=== PATIENT | female | born 1955 | race Caucasian/White ===

== ENCOUNTER 2017-04-27 22:01 | Emergency (ER) | payer BC ==
[2017-04-28] MEDS ORDERED: ONDANSETRON 4 MG TAB.RAPDIS PO ONE (00:45)
[2017-04-28] MEDS ORDERED: KETOROLAC TROMETHAMINE 60 MG/2 ML SDV IM ONE (00:45)
--- NOTE | 2017-04-28 00:46 | ER Document Report ---
ED GI/ - General Chief Complaint: Abdominal Pain Stated Complaint: SIDE PAIN,NAUSEA,PAINFUL URINATION Time Seen by Provider: 04/28/17 00:31 Notes: The patient is a 61-year-old female, PMHx cholecysectomy, tubal ligation, who presents with 1 day of right lower quadrant abdominal pain, dysuria and right flank pain. She said the pain is worsening in intensity. She also having nausea, but no vomiting. She denies fevers, hematemesis, diarrhea, constipation , vaginal discharge, chest pain or shortness of breath. TRAVEL OUTSIDE OF THE [place] IN LAST 30 DAYS: No - Related Data Allergies/Adverse Reactions: No Known Allergies Allergy (Verified 03/14/16 17:29) Past Medical History - General Information source: Patient - Social History Smoking Status: Unknown if Ever Smoked Family History: Reviewed & Not Pertinent Patient has suicidal ideation: No Patient has homicidal ideation: No Renal/ Medical History: Denies: Hx Peritoneal Dialysis Past Surgical History: Reports: Hx Tubal Ligation - Immunizations Hx Diphtheria, Pertussis, Tetanus Vaccination: - Unknown Review of Systems - Review of Systems Notes: REVIEW OF SYSTEMS: CONSTITUTIONAL: -fevers, -chills EENT: -eye pain, -difficulty swallowing, -nasal congestion CARDIOVASCULAR:-chest pain, -syncope. RESPIRATORY: -cough, -SOB GASTROINTESTINAL: +abdominal pain, +nausea, -vomiting, -diarrhea GENITOURINARY: +dysuria, -hematuria MUSCULOSKELETAL: -back pain, -neck pain SKIN: -rash or skin lesions. HEMATOLOGIC: -easy bruising or bleeding. LYMPHATIC: -swollen, enlarged glands. NEUROLOGICAL: -altered mental status or loss of consciousness, -headache, - neurologic symptoms PSYCHIATRIC: -anxiety, -depression. ALL OTHER SYSTEMS REVIEWED AND NEGATIVE. Physical Exam - Vital signs Vitals: Temp Pulse Resp BP Pulse Ox 98.3 F 83 16 130/64 H 99 04/27/17 22:05 04/27/17 22:05 04/27/17 22:05 04/27/17 22:05 04/27/17 22:05 - Notes Notes: PHYSICAL EXAMINATION: GENERAL: Well-appearing, well-nourished and in no acute distress. HEAD: Atraumatic, normocephalic. EYES: Pupils equal round and reactive to light, extraocular movements intact, sclera anicteric, conjunctiva are normal. ENT: nares patent, oropharynx clear without exudates. Moist mucous membranes. NECK: Normal range of motion, supple without lymphadenopathy LUNGS: Breath sounds clear to auscultation bilaterally and equal. No wheezes rales or rhonchi. HEART: Regular rate and rhythm without murmurs ABDOMEN: Soft, moderate RLQ tenderness, normoactive bowel sounds. No guarding, no rebound. No masses appreciated. EXTREMITIES: Normal range of motion, no pitting or edema. No cyanosis. NEUROLOGICAL: Cranial nerves grossly intact. Normal speech, normal gait. Normal sensory and motor exams. PSYCH: Normal mood, normal affect. SKIN: Warm, Dry, normal turgor, no rashes or lesions noted. Course - Re-evaluation Re-evalutation: Pt appears well. CT A/P shows evidence of mild sigmoid diverticulitis without complications. Will treat as Outpatient with Cipro and Flagyl w/ f/u at her PMD. She has a colonoscopy scheduled later this month. Given strict return precautions and she understands. - Vital Signs Vital signs: Temp Pulse Resp BP Pulse Ox 98.3 F 83 16 130/64 H 99 04/27/17 22:05 04/27/17 22:05 04/27/17 22:05 04/27/17 22:05 04/27/17 22:05 - Laboratory Result Diagrams: 04/28/17 00:38 04/28/17 00:38 Laboratory results interpreted by me: 04/28/17 04/28/17 04/28/17 00:38 00:38 01:00 WBC 18.6 H Seg Neuts % (Manual) 89 H Lymphocytes % (Manual) 3 L Monocytes % (Manual) 1 L Abs Neuts (Manual) 17.5 H Potassium 3.3 L Glucose 143 H Total Bilirubin 1.5 H Urine Ketones 20 H - Diagnostic Test Radiology reviewed: Image reviewed, Reports reviewed Radiology results interpreted by me: CT A/P: mild sigmoid diverticulitis Discharge - Discharge Clinical Impression: Sigmoid diverticulitis Condition: Stable Disposition: HOME, SELF-CARE Additional Instructions: Diverticulitis You have been diagnosed as having diverticulitis. This is an inflammation of a small pouch attached to the colon, called a diverticulum. Many of these small pouches can form on the colon as you get older. They are often caused by constipation. When inflamed or infected, symptoms arise -- usually abdominal pain, constipation or diarrhea, fever, and blood in the stool. Severe diverticulitis may require hospitalization. More mild cases are usually treated with antibiotics and clear liquid diet. As you improve, a diet low in residue (one which forms little stool) is prescribed. When you are better, you should eat a high-fiber diet. Stool softeners ( like Metamucil) are usually recommended. Call the doctor or go to the hospital if there is increasing pain, vomiting , high fever, large amounts of blood passed, or if bowel movements cease. Prescriptions: Ciprofloxacin HCl [Cipro 500 mg Tablet] 500 mg PO BID #20 tablet Metronidazole [Flagyl 500 mg Tablet] 500 mg PO Q8H 10 Days Referrals: SHAMIR ROBERTO PA-C [Primary Care Provider] - Follow up as needed COLEEN FAULKNER MD [ACTIVE STAFF] - Follow up as needed
[2017-04-28 00:57] LABS: HEMATOCRIT 37.5 % (36.0-47.0); HEMOGLOBIN 12.5 g/dL (12.0-15.5); MEAN CORPUSCULAR HEMOGLOBIN 29.5 pg (27.0-33.4); MEAN CORPUSCULAR HGB CONC 33.2 g/dL (32.0-36.0); MEAN CORPUSCULAR VOLUME 89 fl (80-97); RED BLOOD COUNT 4.22 10^6/uL (3.72-5.28); RED CELL DISTRIBUTION WIDTH 13.5 % (11.5-14.0); WHITE BLOOD COUNT 18.6 10^3/uL (4.0-10.5)
[2017-04-28 01:10] LABS: ALANINE AMINOTRANSFERASE 35 U/L (9-52); ALBUMIN 4.2 g/dL (3.5-5.0); ALKALINE PHOSPHATASE 64 U/L (38-126); ANION GAP 13 (5-19); ASPARTATE AMINO TRANSFERASE 27 U/L (14-36); BILIRUBIN,DIRECT 0.2 mg/dL (0.0-0.4); BILIRUBIN,TOTAL 1.5 mg/dL (0.2-1.3); BLOOD UREA NITROGEN 15 mg/dL (7-20); CALCIUM 9.8 mg/dL (8.4-10.2); CARBON DIOXIDE 28 mmol/L (22-30); CHLORIDE 100 mmol/L (98-107); CREATININE RESULT 0.83 mg/dL (0.52-1.25); GLUCOSE 143 mg/dL (75-110); POTASSIUM 3.3 mmol/L (3.6-5.0); SODIUM 140.6 mmol/L (137-145); TOTAL PROTEIN 6.9 g/dL (6.3-8.2)
[2017-04-28 01:16] LABS: APPEARANCE,URINE CLEAR; BILIRUBIN,URINE NEGATIVE (NEGATIVE); GLUCOSE, URINE NEGATIVE (NEGATIVE); KETONES,URINE 20 mg/dL (NEGATIVE); LEUKOCYTE ESTERASE,URINE NEGATIVE (NEGATIVE); NITRITE,URINE NEGATIVE (NEGATIVE); PROTEIN,URINE NEGATIVE (NEGATIVE); URINE SPECIFIC GRAVITY 1.014; UROBILINOGEN,URINE NEGATIVE mg/dL (<2.0)
[2017-04-28] MEDS ORDERED: POTASSIUM CHLORIDE 10 MEQ TABLET.SA PO ONE (01:19)
[2017-04-28 01:23] LABS: BAND NEUTROPHILS % (MANUAL) 5 % (3-5); BASOPHILS % (MANUAL) 1 % (0-2); EOSINOPHILS % (MANUAL) 0 % (0-6); LYMPHOCYTES % (MANUAL) 3 % (13-45); TOTAL CELLS COUNTED 100
[2017-04-28 01:24] LABS: RBC MORPHOLOGY COMMENT NORMO-CYTIC/CHROMIC
--- NOTE | 2017-04-28 02:40 | RADIOLOGY REPORT (SQ) ---
EXAM DESCRIPTION: CT ABD/PELVIS WITH IV ONLY COMPLETED DATE/TIME: 04/28/2017 2:13 am REASON FOR STUDY: RLQ tenderness, leukocytosis COMPARISON: None. TECHNIQUE: CT scan of the abdomen and pelvis performed using helical scanning technique with dynamic intravenous contrast injection. No oral contrast. Images reviewed with lung, soft tissue, and bone windows. Reconstructed coronal and sagittal MPR images reviewed. Delayed images for evaluation of the urinary system also acquired. All images stored on PACS. All CT scanners at this facility use dose modulation, iterative reconstruction, and/or weight based d osing when appropriate to reduce radiation dose to as low as reasonably achievable (ALARA). [facility]: Dose Right [facility]: CareDose [facility]: Dose Right [facility]: Teradose 4D [facility]: Teabox CONTRAST TYPE AND DOSE: 91 Isovue 370 RENAL FUNCTION: 0.83 creatinine RADIATION DOSE: 1,904. LIMITATIONS: None. FINDINGS: LOWER CHEST: No significant findings. No nodules or infiltrates. Minimal hiatal hernia. Small atelectasis or scar of the left lower lobe. LIVER: Normal size. No masses or dilated ducts. SPLEEN: Normal size. No focal lesions. PANCREAS: No masses. No significant calcifications. No adjacent inflammation or peripancreatic fluid collections. Pancreatic duct not dilated. GALLBLADDER: Surgically absent. ADRENAL GLANDS: No significant masses or asymmetry. RIGHT KIDNEY AND URETER: No solid masses. No significant calcifications. No hydronephrosis or hyd roureter. LEFT KIDNEY AND URETER: No solid masses. No significant calcifications. No hydronephrosis or hydr oureter. AORTA AND VESSELS: No aneurysm. No dissection. Renal arteries, SMA, celiac without stenosis. RETROPERITONEUM: No retroperitoneal adenopathy, hemorrhage or masses. BOWEL AND PERITONEAL CAVITY: No masses or inflammatory changes. No free fluid or peritoneal masses. Mild sigmoid diverticulitis with moderate streakiness of left paracentral pelvic fat. No significant abscess and no significant drainable fluid collection. PELVIS: No mass or free fluid. Normal bladder. Bilateral tubal ligation. ABDOMINAL WALL: No masses. No hernias. BONES: Mild moderate disc desiccation. 0 point 6 cm L4 anterolisthesis. Moderate vacuum disc desicc ation at the T11-T12 level. Mild lower thoracic disc desiccation. OTHER: No other significant finding. IMPRESSION: Mild sigmoid diverticulitis. TECHNICAL DOCUMENTATION: JOB ID: [id number] Quality ID # [id number]: Final reports with documentation of one or more dose reduction techniques (e.g., Au tomated exposure control, adjustment of the mA and/or kV according to patient size, use of iterative reconstruction technique) 2010 [employer]- All Rights Reserved
[2017-04-28] MEDS ORDERED: CIPROFLOXACIN HCL 500 MG TABLET PO ONE (03:07)
[2017-04-28] MEDS ORDERED: METRONIDAZOLE 500 MG TABLET PO ONE (03:07)
[2017-04-28 06:13] VITALS: BP 128/58
== END 2017-04-28 03:30 | disposition home or self-care (01) ==
LOC: ER 22:01
DX: K57.32 Diverticulitis of large intestine without perforation or abscess without bleeding (principal); R30.0 Dysuria; R11.0 Nausea; Z90.49 Acquired absence of other specified parts of digestive tract; Z98.51 Tubal ligation status
CPT/HCPCS: 99284; 96372; 36415; 83690; 85025; 80053; 81001; 74177; J1885; S0119

== ENCOUNTER 2017-05-22 13:45 | Inpatient (IN) | payer BC ==
--- NOTE | 2017-05-22 14:47 | ER Document Report ---
ED Medical Screen (RME) - General Chief Complaint: Abdominal Pain Stated Complaint: THROWING UP, CAN'T EAT Time Seen by Provider: 05/22/17 14:44 Notes: Recently seen here on April 27 and diagnosed with diverticulitis. She has followed up with local computer support specialist instructor, Dr. Munoz, has been treated with Flagyl and another antibiotic and finish them. She continues to have pain in the epigastric region and in her right side. Also vomiting. Can keep down food or fluids. Denies fever. Called Dr. Munoz's office and advised to come here to get a CT scan. TRAVEL OUTSIDE OF THE [place] IN LAST 30 DAYS: No - Related Data Allergies/Adverse Reactions: No Known Allergies Allergy (Verified 03/14/16 17:29) Past Medical History - Social History Chew tobacco use (# tins/day): No Frequency of alcohol use: None Drug Abuse: None - Past Medical History Cardiac Medical History: Reports: Hx Hypercholesterolemia, Hx Hypertension Renal/ Medical History: Denies: Hx Peritoneal Dialysis Surgical Hx: Negative Past Surgical History: Reports: Hx Tubal Ligation - Immunizations Hx Diphtheria, Pertussis, Tetanus Vaccination: No - Unknown Physical Exam - Vital signs Vitals: Temp Pulse Resp BP Pulse Ox 99.1 F 63 18 143/101 H 99 05/22/17 13:48 05/22/17 13:48 05/22/17 13:48 05/22/17 13:48 05/22/17 13:48 Course - Vital Signs Vital signs: Temp Pulse Resp BP Pulse Ox 99.1 F 63 16 143/101 H 99 05/22/17 13:48 05/22/17 13:48 05/22/17 14:32 05/22/17 13:48 05/22/17 13:48
[2017-05-22 15:32] LABS: ABSOLUTE EOSINOPHILS # (AUTO) 0.1 10^3/uL (0.0-0.6); ABSOLUTE LYMPHOCYTES (AUTO) 1.8 10^3/uL (0.5-4.7); ABSOLUTE MONOCYTES (AUTO) 0.4 10^3/uL (0.1-1.4); ABSOLUTE NEUT (AUTO) 3.8 10^3/uL (1.7-8.2); BASOPHILS % (AUTO) 0.5 % (0-2); EOSINOPHILS % (AUTO) 1.2 % (0-6); HEMATOCRIT 39.1 % (36.0-47.0); HEMOGLOBIN 12.8 g/dL (12.0-15.5); HGB HCT DIFFERENCE -0.7; LYMPHOCYTES % (AUTO) 29.8 % (13-45); MEAN CORPUSCULAR HEMOGLOBIN 29.1 pg (27.0-33.4); MEAN CORPUSCULAR HGB CONC 32.7 g/dL (32.0-36.0); MEAN CORPUSCULAR VOLUME 89 fl (80-97); MONOCYTES % (AUTO) 6.3 % (3-13); RED CELL DISTRIBUTION WIDTH 13.9 % (11.5-14.0); SEGMENTED NEUTROPHILS % (AUTO) 62.2 % (42-78); WHITE BLOOD COUNT 6.1 10^3/uL (4.0-10.5)
[2017-05-22 15:49] LABS: ALANINE AMINOTRANSFERASE 36 U/L (9-52); ALBUMIN 4.3 g/dL (3.5-5.0); ALKALINE PHOSPHATASE 67 U/L (38-126); ANION GAP 11 (5-19); ASPARTATE AMINO TRANSFERASE 24 U/L (14-36); BILIRUBIN,DIRECT 0.2 mg/dL (0.0-0.4); BILIRUBIN,TOTAL 0.9 mg/dL (0.2-1.3); BLOOD UREA NITROGEN 16 mg/dL (7-20); CALCIUM 9.8 mg/dL (8.4-10.2); CARBON DIOXIDE 29 mmol/L (22-30); CHLORIDE 102 mmol/L (98-107); CREATININE RESULT 1.04 mg/dL (0.52-1.25); GLUCOSE 92 mg/dL (75-110); LIPASE 185.6 U/L (23-300); POTASSIUM 3.5 mmol/L (3.6-5.0); SODIUM 141.9 mmol/L (137-145); TOTAL PROTEIN 7.3 g/dL (6.3-8.2)
--- NOTE | 2017-05-22 17:19 | ER Document Report ---
ED GI/ - General Chief Complaint: Abdominal Pain Stated Complaint: VOMITING Time Seen by Provider: 05/22/17 14:44 Notes: The patient is a 61-year-old female, past medical history mild sigmoid diverticulitis, HTN, HLD, presents with 1 week of upper and suprapubic abdominal pain that started after she had an EGD completed by Dr. Munoz last week. She said biopsies were taken and sent. Patient was diagnosed with a sigmoid diverticulitis last month, took her Cipro and Flagyl and had some relief of her symptoms. She denies nausea, vomiting, fevers, chest pain, shortness of breath, headache or urinary symptoms. TRAVEL OUTSIDE OF THE [place] IN LAST 30 DAYS: No - Related Data Allergies/Adverse Reactions: No Known Allergies Allergy (Verified 05/22/17 16:50) Past Medical History - General Information source: Patient - Social History Smoking Status: Never Smoker Chew tobacco use (# tins/day): No Frequency of alcohol use: None Drug Abuse: None Family History: Reviewed & Not Pertinent Patient has suicidal ideation: No Patient has homicidal ideation: No - Past Medical History Cardiac Medical History: Reports: Hx Hypercholesterolemia, Hx Hypertension Renal/ Medical History: Denies: Hx Peritoneal Dialysis Surgical Hx: Negative Past Surgical History: Reports: Hx Tubal Ligation - Immunizations Hx Diphtheria, Pertussis, Tetanus Vaccination: No - Unknown Review of Systems - Review of Systems Notes: REVIEW OF SYSTEMS: CONSTITUTIONAL: -fevers, -chills EENT: -eye pain, -difficulty swallowing, -nasal congestion CARDIOVASCULAR:-chest pain, -syncope. RESPIRATORY: -cough, -SOB GASTROINTESTINAL: +abdominal pain, -nausea, -vomiting, -diarrhea GENITOURINARY: -dysuria, -hematuria MUSCULOSKELETAL: -back pain, -neck pain SKIN: -rash or skin lesions. HEMATOLOGIC: -easy bruising or bleeding. LYMPHATIC: -swollen, enlarged glands. NEUROLOGICAL: -altered mental status or loss of consciousness, -headache, - neurologic symptoms PSYCHIATRIC: -anxiety, -depression. ALL OTHER SYSTEMS REVIEWED AND NEGATIVE. Physical Exam - Vital signs Vitals: Temp Pulse Resp BP Pulse Ox 99.1 F 63 18 143/101 H 99 05/22/17 13:48 05/22/17 13:48 05/22/17 13:48 05/22/17 13:48 05/22/17 13:48 - Notes Notes: PHYSICAL EXAMINATION: GENERAL: Well-appearing, well-nourished and in no acute distress. HEAD: Atraumatic, normocephalic. EYES: Pupils equal round and reactive to light, extraocular movements intact, sclera anicteric, conjunctiva are normal. ENT: nares patent, oropharynx clear without exudates. Moist mucous membranes. NECK: Normal range of motion, supple without lymphadenopathy LUNGS: Breath sounds clear to auscultation bilaterally and equal. No wheezes rales or rhonchi. HEART: Regular rate and rhythm without murmurs ABDOMEN: Soft, moderate RUQ, LUQ and suprapubic tenderness, normoactive bowel sounds. No guarding, no rebound. No masses appreciated. EXTREMITIES: Normal range of motion, no pitting or edema. No cyanosis. NEUROLOGICAL: Cranial nerves grossly intact. Normal speech, normal gait. Normal sensory and motor exams. PSYCH: Normal mood, normal affect. SKIN: Warm, Dry, normal turgor, no rashes or lesions noted. Course - Re-evaluation Re-evalutation: 05/22/17 17:[address] Yanez (Surgeon) about contained perforation of sigmoid colon and he recommends keeping patient n.p.o. No antibiotics at this time. Pt is stable and her pain is under control. - Vital Signs Vital signs: Temp Pulse Resp BP Pulse Ox 97.4 F 66 20 123/74 100 05/22/17 17:42 05/22/17 17:42 05/22/17 17:42 05/22/17 17:42 05/22/17 17:42 - Laboratory Result Diagrams: 05/22/17 15:10 05/22/17 15:10 Laboratory results interpreted by me: 05/22/17 15:10 Potassium 3.5 L Est GFR (Non-Af Amer) 54 L - Diagnostic Test Radiology reviewed: Image reviewed, Reports reviewed Radiology results interpreted by me: CT A/P: contained perforation (4cm x 3cm) of sigmoid colon with air bubble Discharge - Discharge Clinical Impression: Perforated diverticulum of large intestine Condition: Stable Disposition: ADMITTED INPATIENT Admitting Provider: Surgicalist - [facility] Unit Admitted: Surgical Floor
--- NOTE | 2017-05-22 17:29 | RADIOLOGY REPORT (SQ) ---
EXAM DESCRIPTION: CT ABD/PELVIS WITH IV ORAL COMPLETED DATE/TIME: 05/22/2017 4:55 pm REASON FOR STUDY: Abdominal pain with a history of diverticulitis COMPARISON: 04/28/2017, 01/11/2008 CT abdomen pelvis TECHNIQUE: CT scan of the abdomen and pelvis performed using helical scanning technique with dynamic intravenous contrast injection. No oral contrast. Images reviewed with lung, soft tissue, and bone windows. Reconstructed coronal and sagittal MPR images reviewed. Delayed images for evaluation of the urinary system also acquired. All images stored on PACS. All CT scanners at this facility use dose modulation, iterative reconstruction, and/or weight based d osing when appropriate to reduce radiation dose to as low as reasonably achievable (ALARA). [facility]: Dose Right [facility]: CareDose [facility]: Dose Right [facility]: Teradose 4D [facility]: Veratect CONTRAST TYPE AND DOSE: contrast/concentration: Isovue 370.00 mg/ml; Total Contrast Delivered: 93.0 ml; Total Saline Delivered: 50.0 ml RENAL FUNCTION: Creatinine 1.0 RADIATION DOSE: Up-to-date CT equipment and radiation dose reduction techniques were employed. CTDIv ol: 15.6 - 19.2 mGy. DLP: 1819 mGy-cm.. LIMITATIONS: None. FINDINGS: Patient has multiple diverticuli along the descending and sigmoid colon. Along the distal sigmoid colon, there is a diverticulum or tract protruding superiorly off the colon, with a 4 cm x 3 cm x 3 cm extraluminal air pocket in the presacral fat with surrounding inflammatory change. This is worrisome for a contained perforation, and is best shown on axial images 61-69, sag ittal image 61, and coronal image 46. This result was called to Dr. Guardado in the emergency room, 1 710 hours, 05/22/2017. There is oral contrast throughout the remainder of the gastrointestinal tract which is otherwise unre markable. LOWER CHEST: No significant findings. No nodules or infiltrates. Small hiatal hernia LIVER: Normal size. No masses. No dilated ducts. SPLEEN: Normal size. No focal lesions. PANCREAS: No masses. No significant calcifications. No adjacent inflammation or peripancreatic fluid collections. Pancreatic duct not dilated. GALLBLADDER: No identified stones by CT criteria. No inflammatory changes to suggest cholecystitis. ADRENAL GLANDS: No significant masses or asymmetry. RIGHT KIDNEY AND URETER: No solid masses. No significant calcifications. No hydronephrosis or hyd roureter. LEFT KIDNEY AND URETER: No solid masses. No significant calcifications. No hydronephrosis or hydr oureter. AORTA AND VESSELS: No aneurysm. No dissection. Renal arteries, SMA, celiac without stenosis. RETROPERITONEUM: No retroperitoneal adenopathy, hemorrhage or masses. BOWEL AND PERITONEAL CAVITY: As above APPENDIX: Normal. PELVIS: Contained perforation in the presacral fat, from a perforated diverticulum. Uterus, ovaries unremarkable. No free pelvic or pterygoid. ABDOMINAL WALL: No masses. No hernias. BONES: No significant or acute findings. OTHER: No other significant finding. IMPRESSION: Contained perforation, distal sigmoid colon. Air bubble in the presacral fat, 4 x 3 x 3 cm with a tract down to the colon. TECHNICAL DOCUMENTATION: JOB ID: [id number] Quality ID # [id number]: Final reports with documentation of one or more dose reduction techniques (e.g., Au tomated exposure control, adjustment of the mA and/or kV according to patient size, use of iterative reconstruction technique) 2010 [employer]- All Rights Reserved
[2017-05-22 17:33] LABS: APPEARANCE,URINE CLEAR; BILIRUBIN,URINE NEGATIVE (NEGATIVE); GLUCOSE, URINE NEGATIVE (NEGATIVE); KETONES,URINE NEGATIVE (NEGATIVE); LEUKOCYTE ESTERASE,URINE NEGATIVE (NEGATIVE); NITRITE,URINE NEGATIVE (NEGATIVE); PROTEIN,URINE NEGATIVE (NEGATIVE); URINE SPECIFIC GRAVITY 1.024; UROBILINOGEN,URINE NEGATIVE mg/dL (<2.0)
[2017-05-22] MEDS ORDERED: MORPHINE SULFATE 10 MG/ML INJ IV PRN (18:47)
--- NOTE | 2017-05-22 18:47 | PDOC H&P ---
History of Present Illness Admission Date/PCP: SHAMIR ROBERTO PA-C Patient complains of: Abdominal pain History of Present Illness: BULL CARRERA is a 61 year old female who presents with about 1 month history of subxiphoid and a suprapubic abdominal pain along with intermittent nausea and vomiting and fever. Patient was diagnosed with diverticulitis about a month ago and was placed on antibiotics with a partial relief of the pain but the pain has since recurred. With the symptoms worsening she came back to the emergency department. She has had some loose bowel movements no blood per rectum. Patient has had fever. She apparently had a upper endoscopy recently the results of which is unknown but apparently no ulcers were noted at that time. She has already had a laparoscopic cholecystectomy in the remote past. She has no family history of colon cancer but she has never had a colonoscopy. Past Medical History Cardiac Medical History: Reports: Hyperlipidema, Hypertension GI Medical History: Reports: None Musculoskeltal Medical History: Reports: Arthritis, Other - Disc disease. Past Surgical History Past Surgical History: Reports: Cholecystectomy, Tubal Ligation, Other - Rectal reconstruction via perineal approach. Social History Smoking Status: Former Smoker - Quit a number of years ago. Frequency of Alcohol Use: Occasional Hx Recreational Drug Use: No Drugs: None Family History Family History: Reviewed & Not Pertinent Parental Family History Reviewed: No Children Family History Reviewed: No Sibling(s) Family History Reviewed.: No Medication/Allergy Allergies/Adverse Reactions: No Known Allergies Allergy (Verified 05/22/17 16:50) Physical Exam Vital Signs: Temp Pulse Resp BP Pulse Ox 97.4 F 66 20 123/74 100 05/22/17 17:42 05/22/17 17:42 05/22/17 17:42 05/22/17 17:42 05/22/17 17:42 Intake & Output 05/21/17 05/22/17 05/23/17 06:59 06:59 06:59 Weight 86 kg General appearance: PRESENT: no acute distress, cooperative Eye exam: PRESENT: conjunctiva pink Respiratory exam: PRESENT: clear to auscultation ignacio Cardiovascular exam: PRESENT: RRR GI/Abdominal exam: PRESENT: other - Soft, nondistended, subxiphoid tenderness as well as lower mid abdominal tenderness but no peritoneal signs. Musculoskeletal exam: PRESENT: other - Swelling and no tenderness in the calves Neurological exam: PRESENT: alert, awake Psychiatric exam: PRESENT: appropriate affect Skin exam: PRESENT: warm Results Laboratory Results: 05/22/17 15:10 05/22/17 15:10 05/22/17 05/22/17 05/22/17 15:10 15:10 15:45 WBC 6.1 RBC 4.40 Hgb 12.8 Hct 39.1 MCV 89 MCH 29.1 MCHC 32.7 RDW 13.9 Plt Count 304 Seg Neutrophils % 62.2 Lymphocytes % 29.8 Monocytes % 6.3 Eosinophils % 1.2 Basophils % 0.5 Absolute Neutrophils 3.8 Absolute Lymphocytes 1.8 Absolute Monocytes 0.4 Absolute Eosinophils 0.1 Absolute Basophils 0.0 Sodium 141.9 Potassium 3.5 L Chloride 102 Carbon Dioxide 29 Anion Gap 11 BUN 16 Creatinine 1.04 Est GFR ( Amer) > 60 Est GFR (Non-Af Amer) 54 L Glucose 92 Calcium 9.8 Total Bilirubin 0.9 AST 24 ALT 36 Alkaline Phosphatase 67 Total Protein 7.3 Albumin 4.3 Lipase 185.6 Urine Color YELLOW Urine Appearance CLEAR Urine pH 5.0 Ur Specific [place] 1.024 Urine Protein NEGATIVE Urine Glucose (UA) NEGATIVE Urine Ketones NEGATIVE Urine Blood NEGATIVE Urine Nitrite NEGATIVE Ur Leukocyte Esterase NEGATIVE Urine WBC (Auto) 2 Urine RBC (Auto) 0 Impressions: Abdomen/Pelvis CT 05/22/17 00:00 IMPRESSION: Contained perforation, distal sigmoid colon. Air bubble in the presacral fat, 4 x 3 x 3 cm with a tract down to the colon. Assessment & Plan - Diagnosis (1) Perforated diverticulum of large intestine Is this a current diagnosis for this admission?: YesPlan: Contained perforation of the distal sigmoid colon. Attempt to treat the patient conservatively with antibiotics and bowel rest. She will likely benefit from a semi-elective resection but hopefully after a colonoscopy and a bowel prep in a few weeks rather than emergently while she is in the hospital. I have had a long discussion with the patient concerning all of my concerns including atypical presentation of colon cancer. Hopefully she will respond with antibiotics.
[2017-05-22] MEDS ORDERED: ENOXAPARIN SODIUM INJ 40 MG/0.4 ML DISP.SYRIN SUBCUT ONE (20:00)
[2017-05-22] MEDS ORDERED: LEVOFLOXACIN 500 MG/D5W RTU 500 MG/100 ML RTUPB IV SCH (20:00)
[2017-05-22] MEDS: DEXTROSE 5%-1/2 NORMAL SALINE 1,000 ML IV PRN (20:45)
[2017-05-22] MEDS: METRONIDAZOLE 500 MG/NS RTU 100 ML IV SCH (22:34)
[2017-05-22] MEDS: ONDANSETRON 4 MG TAB.RAPDIS PO PRN (22:50)
[2017-05-23] MEDS: METRONIDAZOLE 500 MG/NS RTU 100 ML IV SCH ×2 (02:35→08:03)
[2017-05-23 06:50] LABS: HEMATOCRIT 35.1 % (36.0-47.0); HEMOGLOBIN 11.5 g/dL (12.0-15.5); HGB HCT DIFFERENCE -0.6; MEAN CORPUSCULAR HEMOGLOBIN 29.2 pg (27.0-33.4); MEAN CORPUSCULAR HGB CONC 32.7 g/dL (32.0-36.0); MEAN CORPUSCULAR VOLUME 89 fl (80-97); RED BLOOD COUNT 3.93 10^6/uL (3.72-5.28); RED CELL DISTRIBUTION WIDTH 13.7 % (11.5-14.0); WHITE BLOOD COUNT 5.1 10^3/uL (4.0-10.5)
[2017-05-23 07:12] LABS: ANION GAP 9 (5-19); BLOOD UREA NITROGEN 13 mg/dL (7-20); CALCIUM 9.5 mg/dL (8.4-10.2); CARBON DIOXIDE 30 mmol/L (22-30); CHLORIDE 103 mmol/L (98-107); CREATININE RESULT 1.06 mg/dL (0.52-1.25); GLUCOSE 97 mg/dL (75-110); SODIUM 141.6 mmol/L (137-145)
[2017-05-23] MEDS: ONDANSETRON 4 MG TAB.RAPDIS PO PRN ×2 (08:03→20:22)
[2017-05-23] MEDS: ENOXAPARIN SODIUM INJ 40 MG/0.4 ML DISP.SYRIN SUBCUT SCH (09:23)
[2017-05-23] MEDS ORDERED: PIPERACILLIN/TAZOBACTAM 3.375 GM VIAL IV SCH (10:15)
[2017-05-23] MEDS ORDERED: ONDANSETRON HCL INJ/PF 4 MG/2 ML SDV IV PRN (10:31)
[2017-05-23] MEDS ORDERED: ONDANSETRON HCL INJ/PF 4 MG/2 ML SDV ONE (10:38)
[2017-05-23] MEDS: PIPERACILLIN SODIUM/TAZOBACTAM 3.375 GM in NORMAL SALINE 100 ML IV SCH ×3 (11:22→23:28)
[2017-05-23] MEDS: DEXTROSE 5%-1/2 NORMAL SALINE 1,000 ML IV PRN (11:23)
[2017-05-23] MEDS: KETOROLAC TROMETHAMINE INJ/PF 30 MG/1 ML SDV IV PRN (15:04)
--- NOTE | 2017-05-23 21:29 | PROGRESS NOTE E ---
Progress Note NAME: BULL CARRERA : 1955 AGE: 61Y DATE: 05/23/2017 ROOM: 210 SUBJECTIVE: The patient is a 61-year-old female who is admitted to the hospital a day ago due to abdominal pain. She had been recently seen in mid April with a diagnosis of diverticulitis and placed on a week of oral antibiotics. She now presents with acute pelvic and abdominal pain. CT scan shows continued perforated distal sigmoid colon diverticulitis. The patient feels that her pain is improved but still approximately 4/10. She is having only a small amount of bowel movement. She still has some bloating being present. OBJECTIVE: VITAL SIGNS: Temperature is 98.9, pulse is 63, blood pressure 100/50. GENERAL: The patient is lying in bed in no distress at the current time. ABDOMEN: Soft, nondistended. No peritoneal signs. No rebound. Mild tenderness in the mid pelvic region. DIAGNOSTIC DATA: White blood cell count of 5.1 with it being 6.1 yesterday. ASSESSMENT: PERFORATED SIGMOID DIVERTICULITIS WITH THE PERFORATION BEING CONTAINED. She is improving on IV antibiotics. She had been on a course of Levaquin and Flagyl in which she is currently on IV antibiotics. Even though she is improving, I would recommend switching her antibiotics to Zosyn with anticipation of discharging her on Augmentin. We will start her on a liquid diet. She will need outpatient followup CT scan to show resolution of the diverticulitis prior to stopping her oral antibiotics once discharged. PLAN: 1. Switch her antibiotics to Zosyn IV. 2. Clear liquid diet. 3. Follow abdominal exams. 4. Outpatient followup CT scan once she has been hopefully discharged, not needing urgent abdominal surgery during this hospital. 5. She will need an outpatient colonoscopy once her diverticulitis resolves in approximately 4 weeks. 6. I discussed the possible need for elective colon surgery once she has had the diverticulitis resolved and the colonoscopy. This is a complicated disease and she did not fully resolve with the initial oral antibiotics. DICTATING PHYSICIAN: BRITTANY GREGG M.D. [id number] PHY#: [id number] ID: [id number] JOB#: [id number] ACCT: [id number] cc: >
[2017-05-24] MEDS: DEXTROSE 5%-1/2 NORMAL SALINE 1,000 ML IV PRN ×2 (01:30→23:16)
[2017-05-24] MEDS: PIPERACILLIN SODIUM/TAZOBACTAM 3.375 GM in NORMAL SALINE 100 ML IV SCH ×4 (06:14→23:16)
[2017-05-24] MEDS: ONDANSETRON 4 MG TAB.RAPDIS PO PRN (07:56)
[2017-05-24] MEDS: KETOROLAC TROMETHAMINE INJ/PF 30 MG/1 ML SDV IV PRN ×2 (07:57→20:07)
[2017-05-24] MEDS: ENOXAPARIN SODIUM INJ 40 MG/0.4 ML DISP.SYRIN SUBCUT SCH (09:34)
[2017-05-25] MEDS: KETOROLAC TROMETHAMINE INJ/PF 30 MG/1 ML SDV IV PRN ×3 (03:53→20:29)
[2017-05-25] MEDS: PIPERACILLIN SODIUM/TAZOBACTAM 3.375 GM in NORMAL SALINE 100 ML IV SCH ×3 (05:28→16:42)
[2017-05-25] MEDS: ONDANSETRON 4 MG TAB.RAPDIS PO PRN ×2 (07:04→19:22)
[2017-05-25] MEDS: ENOXAPARIN SODIUM INJ 40 MG/0.4 ML DISP.SYRIN SUBCUT SCH (09:04)
[2017-05-25] MEDS: DEXTROSE 5%-1/2 NORMAL SALINE 1,000 ML IV PRN (11:19)
[2017-05-25 16:52] LABS: HEMATOCRIT 32.5 % (36.0-47.0); HEMOGLOBIN 10.8 g/dL (12.0-15.5); HGB HCT DIFFERENCE -0.1; MEAN CORPUSCULAR HEMOGLOBIN 29.3 pg (27.0-33.4); MEAN CORPUSCULAR HGB CONC 33.3 g/dL (32.0-36.0); MEAN CORPUSCULAR VOLUME 88 fl (80-97); RED BLOOD COUNT 3.68 10^6/uL (3.72-5.28); RED CELL DISTRIBUTION WIDTH 13.7 % (11.5-14.0)
[2017-05-25 17:05] LABS: ANION GAP 10 (5-19); BLOOD UREA NITROGEN 4 mg/dL (7-20); CALCIUM 8.9 mg/dL (8.4-10.2); CARBON DIOXIDE 25 mmol/L (22-30); CHLORIDE 107 mmol/L (98-107); CREATININE RESULT 1.03 mg/dL (0.52-1.25); GLUCOSE 106 mg/dL (75-110); SODIUM 141.6 mmol/L (137-145)
[2017-05-25 17:09] LABS: POTASSIUM 2.9 mmol/L (3.6-5.0)
[2017-05-25 17:16] LABS: WHITE BLOOD COUNT 10.3 10^3/uL (4.0-10.5)
[2017-05-25] MEDS: POTASSIUM CHLORIDE 20 MEQ/50 ML RTU IV SCH ×2 (18:24→20:40)
[2017-05-25] MEDS ORDERED: GLUCAGON,HUMAN RECOMB 1 MG INJ SUBCUT PRN ×2 (19:05→21:54)
[2017-05-25] MEDS ORDERED: DEXTROSE 50%-WATER 25 GM/50 ML DISP.SYRIN IV PRN ×4 (19:05→21:54)
[2017-05-25] MEDS ORDERED: DEXTROSE 40% GEL 15 GM TUBE PO PRN ×4 (19:05→21:54)
--- NOTE | 2017-05-25 20:40 | RADIOLOGY REPORT (SQ) ---
EXAM DESCRIPTION: CT ABD/PELVIS ORAL ONLY COMPLETED DATE/TIME: 05/25/2017 7:27 pm REASON FOR STUDY: diverticulitis with perforation f/u exam COMPARISON: 05/22/2017 TECHNIQUE: CT scan of the abdomen and pelvis performed without intravenous or oral contrast. Images reviewed with lung, soft tissue, and bone windows. Reconstructed coronal and sagittal MPR images revi ewed. All images stored on PACS. All CT scanners at this facility use dose modulation, iterative reconstruction, and/or weight based d osing when appropriate to reduce radiation dose to as low as reasonably achievable (ALARA). [facility]: Dose Right [facility]: CareDose [facility]: Dose Right [facility]: Teradose 4D [facility]: Smart CourseWeaver RADIATION DOSE: Up-to-date CT equipment and radiation dose reduction techniques were employed. CTDIv ol: 18.1 mGy. DLP: 938 mGy-cm.mGy. LIMITATIONS: None. FINDINGS: LOWER CHEST: No significant findings. No nodules or infiltrates. NON-CONTRASTED LIVER, SPLEEN, ADRENALS: Evaluation limited by lack of IV contrast. No identified sign ificant masses. PANCREAS: No masses. No peripancreatic inflammatory changes. GALLBLADDER: Surgically absent. RIGHT KIDNEY AND URETER: No suspicious masses. Assessment limited by lack of IV contrast. No signif icant calcifications. No hydronephrosis or hydroureter. LEFT KIDNEY AND URETER: No suspicious masses. Assessment limited by lack of IV contrast. No signifi cant calcifications. No hydronephrosis or hydroureter. AORTA AND RETROPERITONEUM: No aneurysm. Similar small adenopathy. BOWEL AND PERITONEAL CAVITY: Similar appearance of a contained perforation in the upper pelvis with a djacent inflammatory changes, measures 3.8 cm transversely with an air-fluid level, new since the pre vious exam. No oral contrast material is demonstrated within the contained perforation. Moderate in flammatory changes are again noted in the mid sigmoid colon. APPENDIX: Normal. PELVIS, BLADDER, AND ABDOMINAL WALL:No abnormal masses. No free fluid. Bladder normal. BONES: No significant findings. OTHER: No other significant finding. IMPRESSION: Similar appearance of a contained perforation in the upper pelvis with adjacent inflamma tory changes, measures 3.8 cm transversely with an air-fluid level, new since the previous exam. No oral contrast material is demonstrated within the contained perforation. Moderate inflammatory martinez es are again noted in the mid sigmoid colon. TECHNICAL DOCUMENTATION: JOB ID: [id number] Quality ID # [id number]: Final reports with documentation of one or more dose reduction techniques (e.g., Au tomated exposure control, adjustment of the mA and/or kV according to patient size, use of iterative reconstruction technique) 2010 [employer]- All Rights Reserved
[2017-05-25] MEDS ORDERED: ACETAMINOPHEN 650 MG SUPP.RECT PR PRN (22:02)
--- NOTE | 2017-05-25 22:09 | PROGRESS NOTE E ---
Progress Note NAME: BULL CARRERA : 1955 AGE: 61Y DATE: 05/24/2017 ROOM: 210 SUBJECTIVE: The patient presents with recurrent abdominal pain having diagnosed now with perforated diverticulitis that is contained in the pelvis. She is currently receiving antibiotics to see if this would resolve with nonoperative therapy in order to try to do elective colon resection in the future. The patient feels that her pain has improved. She is starting to have further loose bowel movements. She has not had any nausea or vomiting. OBJECTIVE: VITAL SIGNS: Temperature is 99.1, pulse 61, respirations 18, blood pressure 109/48. GENERAL: The patient is lying in bed in no significant distress. HEART: Regular. LUNGS: Clear. ABDOMEN: Soft, minimal tenderness in the suprapubic region. No peritoneal signs. DIAGNOSTIC DATA: White blood cell count the day prior was 5.1. ASSESSMENT: 1. CONTAINED PERFORATED DISTAL SIGMOID DIVERTICULITIS WITH THE PATIENT IMPROVING ON IV ANTIBIOTICS. I would recommend continued nonoperative therapy along with IV antibiotics and bowel rest until her pain fully resolves clinically. She will need a followup CT scan at some point to determine the length of treatment with either IV or oral antibiotics. 2. HYPERTENSION WITH BLOOD PRESSURE UNDER CONTROL. PLAN: 1. Continue n.p.o. 2. IV fluids. 3. IV antibiotics for regular examinations of her abdomen. DICTATING PHYSICIAN: BRITTANY GREGG M.D. [id number] PHY#: [id number] ID: [id number] JOB#: [id number] ACCT: [id number] cc: >
[2017-05-25] MEDS: FLUCONAZOLE 400 MG/NS RTU 400 MG/200 ML RTUPB IV SCH (23:04)
--- NOTE | 2017-05-25 23:04 | PROGRESS NOTE E ---
Progress Note NAME: BULL CARRERA : 1955 AGE: 61Y DATE: 05/25/2017 ROOM: 210 SUBJECTIVE: The patient had presented with complicated sigmoid diverticulitis having a contained perforation in the pelvis. She had been doing well over the last 3 days on IV antibiotics. However, today she started having fever and not feeling as well. A CT of the abdomen and pelvis has been obtained. DIAGNOSTIC DATA: CT shows approximately 4 cm pelvic abscess contained in the pelvis measuring almost 4 cm in size. It has not changed appreciable since the last CT scan, although it does now have this air fluid level being present. White blood cell count of 10. OBJECTIVE: ABDOMEN: Soft, mild tenderness in the suprapubic region. ASSESSMENT: THE PATIENT CONTINUES TO HAVE NON RESOLUTION OF THIS PELVIC ABSCESS FROM PERFORATED DIVERTICULITIS. CT scan of the abdomen and pelvis shows the collection having an air fluid level. The area of the abscess is difficult to access percutaneously, but still possibly can. I have had extensive discussion with the patient and her in regard to treatment. There are several options that are able to be chosen from with the first one being decided in the a.m. The CT scan will need to be reviewed with Interventional Radiology to see if a percutaneous drain can be placed. The other option is to proceed right to surgery and do a Calli's procedure with its morbidity. I have recommended reviewing the CT scan with Interventional Radiology and if possible percutaneously place the drain. If a drain cannot be placed, then proceeding with Calli's procedure. The patient understands the 2 options and agrees with seeing if Interventional Radiology will be able to place the drain, which should significantly increase her chances of resolving the abscessed cavity. If this happens, then we will proceed with elective surgery in the near future as a 1 stage procedure most likely. PLAN: Review CT scan of the abdomen and pelvis with Radiology to see if a percutaneous drain can be placed in the a.m. DICTATING PHYSICIAN: BRITTANY GREGG M.D. [id number] PHY#: [id number] ID: [id number] JOB#: [id number] ACCT: [id number] cc: > [facility]
--- NOTE | 2017-05-25 23:13 | PROGRESS NOTE E ---
Progress Note NAME: BULL CARRERA : 1955 AGE: 61Y DATE: 05/25/2017 ROOM: 210 SUBJECTIVE: The patient had presented with complicated diverticulitis having a perforated sigmoid colon distally that was contained. The patient is having a little more abdominal pain today. She is still having loose stools. OBJECTIVE: The patient has now had a temperature up to 102.8, pulse 78, blood pressure 120/50. ABDOMEN: Mild tenderness in his suprapubic region. No peritoneal signs. ASSESSMENT: CONTAINED PERFORATED SIGMOID DIVERTICULITIS LOCATED DISTALLY AND IN THE PELVIS. For the past several days she has improved, however today she is having low grade fever and having a little more abdominal pain. At this time I would recommend getting a CT scan of the abdomen and pelvis to see how and if this pelvic abscess has changed and whether there is worsening such as getting better or draining into the colon or having now being multiloculated. She is having loose stools. I would recommend getting a C. diff to rule out this type of disease, which can give a similar picture and it is possible as she has been on antibiotics for quite some time in the last month. We will maintain the patient n.p.o. and follow her vital signs. PLAN: 1. Stool for C. difficile. 2. CT scan of the abdomen and pelvis. 3. N.p.o. for IV fluids. 5. IV antibiotics. DICTATING PHYSICIAN: BRITTANY GREGG M.D. [id number] PHY#: [id number] ID: [id number] JOB#: [id number] ACCT: [id number] cc: >
[2017-05-26] MEDS: PIPERACILLIN SODIUM/TAZOBACTAM 3.375 GM in NORMAL SALINE 100 ML IV SCH ×4 (00:43→18:35)
[2017-05-26] MEDS: POTASSI CL 40 MEQ/D5-1/2NS 1L 40 MEQ/1,000 ML RTUINJ IV PRN ×2 (00:43→10:03)
[2017-05-26 06:53] LABS: HEMATOCRIT 27.6 % (36.0-47.0); HEMOGLOBIN 9.2 g/dL (12.0-15.5); MEAN CORPUSCULAR HEMOGLOBIN 29.7 pg (27.0-33.4); MEAN CORPUSCULAR HGB CONC 33.3 g/dL (32.0-36.0); MEAN CORPUSCULAR VOLUME 89 fl (80-97); RED BLOOD COUNT 3.09 10^6/uL (3.72-5.28); RED CELL DISTRIBUTION WIDTH 13.5 % (11.5-14.0); WHITE BLOOD COUNT 7.1 10^3/uL (4.0-10.5)
[2017-05-26 07:08] LABS: ALANINE AMINOTRANSFERASE 33 U/L (9-52); ALBUMIN 2.5 g/dL (3.5-5.0); ALKALINE PHOSPHATASE 42 U/L (38-126); ANION GAP 6 (5-19); ASPARTATE AMINO TRANSFERASE 18 U/L (14-36); BILIRUBIN,DIRECT 0.4 mg/dL (0.0-0.4); BILIRUBIN,TOTAL 1.4 mg/dL (0.2-1.3); BLOOD UREA NITROGEN 4 mg/dL (7-20); CALCIUM 8.4 mg/dL (8.4-10.2); CARBON DIOXIDE 24 mmol/L (22-30); CHLORIDE 111 mmol/L (98-107); CREATININE RESULT 0.98 mg/dL (0.52-1.25); GLUCOSE 100 mg/dL (75-110); MAGNESIUM 1.6 mg/dL (1.6-2.3); PHOSPHORUS 2.7 mg/dL (2.5-4.5); POTASSIUM 3.2 mmol/L (3.6-5.0); SODIUM 140.5 mmol/L (137-145); TOTAL PROTEIN 4.9 g/dL (6.3-8.2)
[2017-05-26 07:09] LABS: PROTHROMBIN TIME 15.2 SEC (11.4-15.4)
[2017-05-26] MEDS ORDERED: ONDANSETRON 4 MG TAB.RAPDIS PO PRN (07:12)
[2017-05-26] MEDS ORDERED: PEG 3350/NA SULF,BICARB,CL/KCL 4000 ML PO PRN (09:39)
--- NOTE | 2017-05-26 09:51 | PDOC PROGRESS REPORT ---
Subjective Progress Note for:: 05/26/17 Subjective:: Patient had fever to 102.8 last night. Had some nausea vomiting throughout contrast and had some loose bowel movements. She was empirically started on Diflucan for possible fungal infection Physical Exam Vital Signs: Temp Pulse Resp BP Pulse Ox 98.7 F 59 L 16 118/66 99 05/26/17 08:07 05/26/17 08:07 05/26/17 08:07 05/26/17 08:07 05/26/17 08:07 Intake & Output 05/25/17 05/26/17 05/27/17 06:59 06:59 06:59 Intake Total 1820 1120 Output Total 500 Balance 1820 620 Weight 92 kg 92.4 kg General appearance: PRESENT: no acute distress GI/Abdominal exam: PRESENT: other - In general, soft, tender in the pelvic area but no rigidity. No abdominal distention. Bowel sounds hypoactive. Results Laboratory Results: 05/26/17 06:45 05/26/17 06:45 05/25/17 05/25/17 05/26/17 16:41 16:41 06:45 WBC 10.3 D 7.1 RBC 3.68 L 3.09 L Hgb 10.8 L 9.2 L Hct 32.5 L 27.6 L MCV 88 89 MCH 29.3 29.7 MCHC 33.3 33.3 RDW 13.7 13.5 Plt Count 224 180 Sodium 141.6 Potassium 2.9 L* Chloride 107 Carbon Dioxide 25 Anion Gap 10 BUN 4 L Creatinine 1.03 Est GFR ( Amer) > 60 Est GFR (Non-Af Amer) 55 L Glucose 106 Calcium 8.9 Phosphorus Magnesium Total Bilirubin AST ALT Alkaline Phosphatase Total Protein Albumin 05/26/17 06:45 WBC RBC Hgb Hct MCV MCH MCHC RDW Plt Count Sodium 140.5 Potassium 3.2 L Chloride 111 H Carbon Dioxide 24 Anion Gap 6 BUN 4 L Creatinine 0.98 Est GFR ( Amer) > 60 Est GFR (Non-Af Amer) 58 L Glucose 100 Calcium 8.4 Phosphorus 2.7 Magnesium 1.6 Total Bilirubin 1.4 H AST 18 ALT 33 Alkaline Phosphatase 42 Total Protein 4.9 L Albumin 2.5 L Impressions: Abdomen/Pelvis CT 05/25/17 00:00 IMPRESSION: Similar appearance of a contained perforation in the upper pelvis with adjacent inflammatory changes, measures 3.8 cm transversely with an air- fluid level, new since the previous exam. No oral contrast material is demonstrated within the contained perforation. Moderate inflammatory changes are again noted in the mid sigmoid colon. Assessment & Plan - Plan Summary Plan Summary: Impression: Complicated diverticulitis with adalberto- colonic abscess, Hinchey classification 1, on intravenous antibiotics for 4 days, no evidence of obstruction, or colonic leak following sequential CT scan of the abdomen and pelvis with oral contrast Plan: 1. I reviewed imaging studies with Dr. Miner this morning. The high pelvic - low abdominal cavity abscess is not amenable to percutaneous drainage. 2. I explained the above to the patient and her significant other. I peter pictures and we discussed management strategies hereafter including Continue IV antibiotics, observation; I do not believe this will be successful in this patient Continue intravenous antibiotics, proceed with bowel prep, and set patient up for interval sigmoid colectomy, washout, possible primary anastomosis, possible colostomy, possible primary anastomosis with protective ileostomy. I discussed these operative strategies with the patient. 3. I will look at my schedule, that of my colleagues this week and see if we can set her up for interval surgical resection. Patient's temperature is down, pulse is down and white blood cell count diminished; today the patient does not have an acute abdomen and does not need emergent surgery and I explained this to the patient.
--- NOTE | 2017-05-26 17:54 | DISCHARGE SUMMARY E ---
Discharge Summary NAME: BULL CARRERA : 1955 AGE: 61Y ADMITTED: 05/22/2017 DISCHARGED: 05/26/2017 REASON FOR TRANSFER: Advanced level of care. SUMMARY OF HOSPITALIZATION: The patient is a 61-year-old white female who was admitted to the surgicalist service because of a month history of abdominal pain. She was evaluated by CT scan of the abdomen and pelvis and found to have a perforated sigmoid diverticula, with a contained abscess. The patient was admitted to the surgicalist service, and kept NPO and on IV fluids. She clinically improved. She never had a leukocytosis. The patient did well initially, then after 3 days developed a fever to 102.8. She had a repeat CT scan of the abdomen and pelvis with IV and oral contrast which showed no evidence of colonic leak, and the essentially unchanged 4 cm abscess in the lower abdomen/upper pelvic region. There were moderate inflammatory changes around the sigmoid colon. Management strategies were discussed with Radiology, and this was felt non-amenable to percutaneous drainage. Discussion was had with the patient about strategies including interval colon resection, colectomy with colostomy, colectomy with primary anastomosis and protective ileostomy, and ongoing management with IV fluids in a delayed fashion. The patient expressed her desire to be transferred to an institution of higher level of care. I discussed the patient's case with Dr. Nathan Wright, colorectal surgeon, who agreed to receive the patient in transfer. FINAL DIAGNOSIS: Acute, complicated sigmoid diverticulitis with pericolonic abscess, Hinchey classification I-II. DISPOSITION: The patient will be transferred to the care of Dr. Nathan Wright, colorectal surgeon at [facility]. This will transpire pending bed availability. DICTATING PHYSICIAN: CARITO DASH M.D. [id number] PHY#: [id number] ID: [id number] JOB#: [id number] ACCT: [id number] cc:James DALAL M.D. > MTDD
[2017-05-26] MEDS: FLUCONAZOLE 400 MG/NS RTU 400 MG/200 ML RTUPB IV SCH (23:23)
[2017-05-27] MEDS: PIPERACILLIN SODIUM/TAZOBACTAM 3.375 GM in NORMAL SALINE 100 ML IV SCH ×3 (01:54→11:31)
[2017-05-27] MEDS: POTASSI CL 40 MEQ/D5-1/2NS 1L 40 MEQ/1,000 ML RTUINJ IV PRN (07:27)
[2017-05-27 13:21] VITALS: BP 108/59
--- NOTE | 2017-05-27 15:32 | PDOC DISCHARGE SUMMARY ---
General - Admit/Disc Date/PCP Admission Date/Primary Care Provider: 05/22/17 18:47 SHAMIR ROBERTO PA-C Discharge Date: 05/27/17 - Discharge Diagnosis (1) Perforated diverticulum of large intestine Is this a current diagnosis for this admission?: YesSummary: The patient was admitted with perforated sigmoid diverticulitis, with contained abscess formation. The patient remained stable while on antibiotics, IV fluids , and on maintenance of n.p.o. status. The abscess was not amenable to percutaneous drainage, and surgery was offered to the patient. The choices were : (1) Resection with end colostomy, with later reversal. (2) resection with primary anastomosis, and (3) resection with primary anastomosis and protective ileostomy. After these options were explained to the patient, she decided that she wanted to go to [facility], so that her could visit her daily, when surgery was undertaken. The patient was initially going to be sent to [facility] in [place], but the patient wanted to stay closer to home. The patient is presently doing well, with only localized tenderness in the left lower quadrant. Her white blood cell count is just over 7000. The patient is now being transferred to [facility] and [place], [place]. - Additional Information Resuscitation Status: Full Code Home Medications: Acetaminophen [Tylenol Arthritis 650 mg Tablet] 650 mg PO TIDP PRN 05/22/17 Atorvastatin Calcium [Lipitor 10 mg Tablet] 10 mg PO QHS 05/22/17 Celecoxib [Celebrex 100 mg Capsule] 100 mg PO BID 05/22/17 Hydrochlorothiazide 25 mg PO DAILY 05/22/17 Lansoprazole [Prevacid] 30 mg PO QAM 05/22/17 History of Present Illness History of Present Illness: BULL CARRERA is a 61 year old female Physical Exam Vital Signs: Temp Pulse Resp BP Pulse Ox 98.0 F 61 18 108/59 L 99 05/27/17 12:20 05/27/17 12:20 05/27/17 12:20 05/27/17 12:20 05/27/17 12:20 Intake & Output 05/26/17 05/27/17 05/28/17 06:59 06:59 06:59 Intake Total 1120 Output Total 500 Balance 620 Weight 92.4 kg General appearance: PRESENT: no acute distress Head exam: PRESENT: atraumatic, normocephalic Mouth exam: PRESENT: moist, neck supple, tongue midline Respiratory exam: PRESENT: clear to auscultation ignacio, unlabored Cardiovascular exam: PRESENT: RRR GI/Abdominal exam: PRESENT: tenderness - Mild in left lower quadrant. Rectal exam: PRESENT: deferred Results Laboratory Results: 05/26/17 06:45 05/26/17 06:45 Impressions: Abdomen/Pelvis CT 05/25/17 00:00 IMPRESSION: Similar appearance of a contained perforation in the upper pelvis with adjacent inflammatory changes, measures 3.8 cm transversely with an air- fluid level, new since the previous exam. No oral contrast material is demonstrated within the contained perforation. Moderate inflammatory changes are again noted in the mid sigmoid colon. Plan Discharge Plan: Patient is being transferred now to the hospital, in [place], [place]. Time Spent: Greater than 30 Minutes - I was in communication with the transfer center, the surgical staff, and the medical staff at [facility], and [facility]
== END 2017-05-27 13:39 | disposition short-term general hospital (02) | DRG 392 ==
LOC: ER 13:45 → UNDOADMIN 18:32 → EH 18:32 → 2N 19:40
PROVIDERS: ADMIT Surgery; ATTEND Surgery
DX: K57.20 Diverticulitis of large intestine with perforation and abscess without bleeding (principal); E78.5 Hyperlipidemia, unspecified; I10 Essential (primary) hypertension; M19.90 Unspecified osteoarthritis, unspecified site; Z90.49 Acquired absence of other specified parts of digestive tract; Z79.899 Other long term (current) drug therapy; Z87.891 Personal history of nicotine dependence
CPT/HCPCS: 36415; 74176; 74177; 80048; 80053; 81001; 83690; 83735; 84100; 85025; 85027; 85610; 87040; 87493; 99285; J1650; J1885; J1956; J2405; J2543; J3480; J3490; S0119

== ENCOUNTER → 2017-06-03 | Outpatient (CLI) | payer BC ==
--- NOTE | 2017-06-03 16:08 | XCELERA REPORT ---
[address] [address] Lower Extremity Venous Evaluation Name: BULL CARRERA Age: 61 yrs Gender: Female : 1955 Patient Status: Outpatient Patient Location: Study Date: 06/03/2017 02:54 PM Procedure: Color flow and duplex imaging bilaterally of the veins of the lower extremities as well as the Common Femoral veins. Reason For Study: BLE SWELLING Ordering Physician: SHAMIR ROBERTO PA-C Performed By: Rhonda Price Right Sided Venous Evaluation Normal vessel filling wall to wall, compression and augmentation as well as Colour flow down to the infrageniculate veins. Left Sided Venous Evaluation Normal vessel filling wall to wall, compression and augmentation as well as Colour flow down to the infrageniculate veins. Critical Findings Called in to Veronica at [facility] at 1600. Interpretation Summary No duplex evidence of DVT or obstruction in the bilateral lower extremities. : SHAMIR ROBERTO PA-C > Colin Carrera
== END ==
LOC: SP 14:01
PROVIDERS: ATTEND Physician Assistant
DX: M79.605 Pain in left leg (principal); M79.89 Other specified soft tissue disorders
CPT/HCPCS: 93970

== ENCOUNTER → 2019-08-26 | Outpatient (CLI) | payer BC ==
--- NOTE | 2019-08-26 08:12 | WOMENS IMAGING REPORT ---
EXAM DESCRIPTION: 3D SCREENING MAMMO BILAT COMPLETED DATE/TIME: 08/26/2019 7:14 am REASON FOR STUDY: Z12.31 ENCOUNTER FOR SCREENING MAMMOGRAM FOR MALIGNANT NEOPLASM OF BREAST Z12.31 ENCNTR SCREEN MAMMOGRAM FOR MALIGNANT NEOPLASM OF MIKEL COMPARISON: 04/19/2015 EXAM PARAMETERS: Views: Standard craniocaudal and mediolateral oblique views of each breast recorded using digital acquisition and breast tomosynthesis. Read with the assistance of CAD. .[facility] - R2 Gas Burner Operator Version 9.2 LIMITATIONS: None. FINDINGS: No suspicious masses, suspicious calcifications or architectural distortion. No areas of c oncern. IMPRESSION: NEGATIVE MAMMOGRAM. BIRADS 1. BREAST DENSITY: a. The breasts are almost entirely fatty. BIRAD: ASSESSMENT: 1 NEGATIVE RECOMMENDATION: ROUTINE SCREENING Please continue yearly bilateral screening mammography/tomosynthesis in August 2020 COMMENT: The patient has been notified of the results by letter per MQSA requirements. Additional no tification policies are in place for contacting patient with suspicious or incomplete findings. Quality ID #[id number]: The [employer] recommends an annual screening mammogram for women aged 40 years or over. This facility utilizes a reminder system to ensure that all patients receive reminder letters, and/or direct phone calls for appointments. This includes reminders for routine scr eening mammograms, diagnostic mammograms, or other Breast Imaging Interventions when appropriate. Th is patient will be placed in the appropriate reminder system. TECHNICAL DOCUMENTATION: FINDING NUMBER: (1) ASSESSMENT: (1) JOB ID: [id number] [employer]- All Rights Reserved Reading location - IP/workstation name: [email or web address]
== END ==
LOC: WI 06:49
PROVIDERS: ATTEND Obstetrics & Gynecology Gynecology
DX: Z12.31 Encounter for screening mammogram for malignant neoplasm of breast (principal); Z80.3 Family history of malignant neoplasm of breast
CPT/HCPCS: 77063; 77067